=== PATIENT | female | born 1945 | race Caucasian/White ===

== ENCOUNTER 2018-03-10 15:44 | Emergency (ER) | payer BC ==
[~2018-03-10] VITALS: Ht 160 cm; Wt 81.6 kg
[2018-03-10 15:48] VITALS: BP 133/74
[2018-03-10] MEDS ORDERED: RANI150T8 PO (15:55)
[2018-03-10] MEDS ORDERED: LETR2.5T7 PO (15:55)
[2018-03-10] MEDS ORDERED: ZOLP5TAB8 PO (15:55)
[2018-03-10] MEDS ORDERED: BUPR300T54 PO (15:55)
[2018-03-10] MEDS ORDERED: ESOM40CA52 PO (15:55)
[2018-03-10] MEDS ORDERED: BENA1TAB17 PO (15:55)
[2018-03-10] MEDS ORDERED: VARE1TAB PO (15:55)
[2018-03-10] MEDS ORDERED: ROSU20TA31 PO (15:55)
--- NOTE | 2018-03-10 16:22 | NUR ---
DR SALAZAR AT BEDSIDE FOR EVAL.
[2018-03-10] MEDS ORDERED: HYDROMORPHONE INJ 0.5 MG/0.5 ML SYRINGE ONE (16:25)
[2018-03-10] MEDS ORDERED: HYDROMORPHONE INJ 2 MG/ML DISP.SYRIN IV ONE (16:30)
--- NOTE | 2018-03-10 16:57 | NUR ---
RADIOLOGY AT BEDSIDE FOR L HUMERUS XRAY.
--- NOTE | 2018-03-10 17:25 | NUR ---
IV removed. Catheter intact and site benign. Pressure and 4x4 applied to site. No bleeding noted.Patient discharged to home in stable condition. Written and verbal after care instructions given. Patient verbalizes understanding of instruction.
== END 2018-03-10 17:51 | disposition home or self-care (01) ==
LOC: ER 15:46
DX: S42.292A Other displaced fracture of upper end of left humerus, initial encounter for closed fracture (principal); I10 Essential (primary) hypertension; K21.9 Gastro-esophageal reflux disease without esophagitis; F32.9 Major depressive disorder, single episode, unspecified; Z85.3 Personal history of malignant neoplasm of breast; Z88.5 Allergy status to narcotic agent; W01.0XXA Fall on same level from slipping, tripping and stumbling without subsequent striking against object, initial encounter; Y93.01 Activity, walking, marching and hiking; Y92.89 Other specified places as the place of occurrence of the external cause; Y99.8 Other external cause status
CPT/HCPCS: 73060-TC